=== PATIENT | female | born 1990 | race Caucasian/White ===

== ENCOUNTER 2017-04-08 04:05 | Inpatient (IN) | payer OTHER ==
[2017-04-08] MEDS ORDERED: PROPOFOL 10 MG/ML, 20ML ONE (06:00)
[2017-04-08] MEDS ORDERED: SUCCINYLCHOLINE 20 MG/ML, 10ML ONE (06:00)
[2017-04-08] MEDS ORDERED: KETOROLAC 30 MG/1 ML ONE (06:00)
[2017-04-08] MEDS ORDERED: EPHEDRINE 50 MG/ML, 1ML ONE (06:00)
[2017-04-08] MEDS ORDERED: METOCLOPRAMIDE 5 MG/ML, 2ML ONE (06:00)
[2017-04-08] MEDS: KETOROLAC 30 MG/1 ML IV SCH ×3 (06:30→19:30)
[2017-04-08 09:20] VITALS: BP 127/81
[2017-04-08] MEDS: LACTATED RINGERS 1,000 ML IV SCH ×4 (09:53→21:14)
[2017-04-08] MEDS: OXYTOCIN 30U/ 0.9% NaCL 500ML 500 ML IV SCH ×2 (09:53→19:53)
[2017-04-08] MEDS ORDERED: ONDANSETRON 2MG/ML, 2ML IV PRN (10:00)
[2017-04-08] MEDS ORDERED: morphine SULFATE 10 MG/ML, 1ML IVPush PRN ×2 (10:00)
[2017-04-08] MEDS ORDERED: MEPERIDINE/PF 25MG/0.5ML IM PRN (10:00)
[2017-04-08] MEDS ORDERED: MEPERIDINE/PF 50 MG/ML IVPush PRN (10:00)
[2017-04-08] MEDS ORDERED: MISOPROSTOL 200 MCG TABLET PO PRN (10:00)
[2017-04-08] MEDS ORDERED: OXYcodone IR 5MG TABLET PO PRN ×2 (10:00)
[2017-04-08] MEDS ORDERED: SIMETHICONE 80 MG CHEW TAB PO PRN (10:00)
[2017-04-08] MEDS ORDERED: MISOPROSTOL 200 MCG TABLET PR PRN ×2 (10:00)
[2017-04-08] MEDS ORDERED: MEPERIDINE/PF 50 MG/ML IM PRN (10:00)
[2017-04-08] MEDS ORDERED: MEPERIDINE/PF 100 MG/ML IVPush PRN (10:00)
[2017-04-08] MEDS ORDERED: CALCIUM CARBONATE 500 MG TAB.CHEW PO PRN (10:00)
[2017-04-08 10:15] LABS: HEMATOCRIT 33.7 % (34.6-47.8); HEMOGLOBIN 11.3 g/dL (11.7-16.4); WHITE BLOOD COUNT 16.4 x10^3/uL (3.4-10)
[2017-04-08] MEDS: OXYcodone/APAP 5/325MG TABLET PO PRN ×3 (10:56→19:30)
[2017-04-08] MEDS ORDERED: PLEASE ENTER HEIGHT AND WEIGHT MC SCH (11:00)
[2017-04-08 12:30] VITALS: BP 110/72
[2017-04-08 14:26] LABS: HEMATOCRIT 29.8 % (34.6-47.8); WHITE BLOOD COUNT 18.3 x10^3/uL (3.4-10)
[2017-04-08 16:00] VITALS: BP 113/75
[2017-04-08 17:14] LABS: HEMOGLOBIN 9.9 g/dL (11.7-16.4); WHITE BLOOD COUNT 16.4 x10^3/uL (3.4-10)
[2017-04-08] MEDS: DOCUSATE 100 MG CAPSULE PO PRN (19:30)
[2017-04-08 20:45] VITALS: BP 112/67
[2017-04-09] MEDS: OXYcodone/APAP 5/325MG TABLET PO PRN ×5 (00:03→20:55)
[2017-04-09 00:07] VITALS: BP 104/65
[2017-04-09] MEDS: KETOROLAC 30 MG/1 ML IV SCH ×2 (01:35→08:02)
[2017-04-09] MEDS: LACTATED RINGERS 1,000 ML IV SCH ×5 (01:53→17:53)
[2017-04-09] MEDS: OXYTOCIN 30U/ 0.9% NaCL 500ML 500 ML IV SCH ×2 (05:53→15:53)
[2017-04-09 05:55] VITALS: BP 103/65
[2017-04-09 08:00] VITALS: BP 104/65
[2017-04-09] MEDS: DOCUSATE 100 MG CAPSULE PO PRN ×2 (08:02→20:55)
[2017-04-09] MEDS ORDERED: IBUPROFEN 600 MG TABLET ONE (08:11)
[2017-04-09] MEDS: IBUPROFEN 600 MG TABLET PO PRN ×3 (08:12→20:55)
[2017-04-09 19:30] VITALS: BP 114/63
[2017-04-10] MEDS: OXYTOCIN 30U/ 0.9% NaCL 500ML 500 ML IV SCH ×2 (01:53→11:53)
[2017-04-10] MEDS: LACTATED RINGERS 1,000 ML IV SCH ×4 (01:53→11:53)
[2017-04-10] MEDS: IBUPROFEN 600 MG TABLET PO PRN ×2 (03:45→13:09)
[2017-04-10] MEDS: OXYcodone/APAP 5/325MG TABLET PO PRN ×3 (03:45→13:09)
[2017-04-10 07:40] VITALS: BP 119/75
[2017-04-10] MEDS: PRENATAL VIT/IRON/FA 1 EACH TABLET PO SCH ×2 (08:06→09:00)
[2017-04-10] MEDS: DOCUSATE 100 MG CAPSULE PO PRN (08:07)
[2017-04-10] MEDS ORDERED: IBUPROFEN 600 MG TABLET PO PRN (10:00)
[2017-04-10] MEDS ORDERED: DOCU-131 PO (11:06)
[2017-04-10] MEDS ORDERED: IBUP-1223 PO (11:07)
[2017-04-10] MEDS ORDERED: OXYC-302 PO (11:08)
[2017-04-10] MEDS ORDERED: DIPH,PERTUSS(ACELL),TET VAC/PF NC IM-VACC ONE ×2 (13:02→13:10)
== END 2017-04-10 13:55 | disposition home or self-care (01) | DRG 766 ==
LOC: LDIP 04:05 → 2NW 09:24
PROVIDERS: ADMIT Obstetrics & Gynecology; ATTEND Obstetrics & Gynecology
PROC: 10D00Z1 Extraction of Products of Conception, Low, Open Approach (ICD-10-PCS; principal; 2017-04-08)
PROC: 0DNS0ZZ (ICD-10-PCS; 2017-04-08)
DX: O34.211 Maternal care for low transverse scar from previous cesarean delivery (principal); F32.9 Major depressive disorder, single episode, unspecified; Z37.0 Single live birth; O99.344 Other mental disorders complicating childbirth; K66.0 Peritoneal adhesions (postprocedural) (postinfection); F17.200 Nicotine dependence, unspecified, uncomplicated; O99.334 Smoking (tobacco) complicating childbirth; Z3A.38 38 weeks gestation of pregnancy; Z90.49 Acquired absence of other specified parts of digestive tract; Z88.4 Allergy status to anesthetic agent; Z88.1 Allergy status to other antibiotic agents; Z91.040 Latex allergy status; Z88.5 Allergy status to narcotic agent; Z91.018 Allergy to other foods; Z81.8 Family history of other mental and behavioral disorders; Z83.3 Family history of diabetes mellitus
CPT/HCPCS: 36415; 85025; 86850; 86900; 88230; 88262; 88289; 89060; 90715; J1885; J2704; J0330; J2765; J7120; Q0114

== ENCOUNTER 2017-06-02 17:56 | Emergency (ER) | payer OTHER ==
[~2017-06-02] VITALS: Ht 154.9 cm; Wt 64.0 kg
[~2017-06-02 17:56] MED LIST: DOCU-131 PO; IBUP-1223 PO; OXYC-302 PO
[2017-06-02] MEDS ORDERED: SODIUM CHLORIDE FLUSH 10ML SYR IVF ONE (19:00)
[2017-06-02] MEDS ORDERED: SODIUM CHLORIDE 0.9% 1,000ML IVBOLUS ONE (19:00)
[2017-06-02] MEDS ORDERED: DIPHENHYDRAMINE 50 MG/ML, 1ML IVPush ONE (19:00)
[2017-06-02] MEDS ORDERED: METOCLOPRAMIDE 5 MG/ML, 2ML IVPush ONE (19:00)
[2017-06-02] MEDS ORDERED: KETOROLAC 30 MG/1 ML IVPush ONE (19:00)
[2017-06-02] MEDS ORDERED: KETOROLAC 30 MG/1 ML ONE (19:16)
[2017-06-02] MEDS ORDERED: METOCLOPRAMIDE 5 MG/ML, 2ML ONE (19:16)
[2017-06-02] MEDS ORDERED: DIPHENHYDRAMINE 50 MG/ML, 1ML ONE (19:16)
[2017-06-02 19:48] VITALS: BP 120/68
== END 2017-06-02 20:21 | disposition home or self-care (01) ==
LOC: ED 18:48
DX: G43.009 Migraine without aura, not intractable, without status migrainosus (principal); J02.8 Acute pharyngitis due to other specified organisms
CPT/HCPCS: 71020; 87081; 87880; 93005; 96361; 96374; 96375; 99285; J1200; J1885; J2765; J7030

== ENCOUNTER 2017-12-03 01:45 | Emergency (ER) | payer SELFPAY ==
[~2017-12-03] VITALS: Ht 154.9 cm; Wt 62.3 kg
[~2017-12-03 01:45] MED LIST changes: +PRENATAL; +TYLENOL
[2017-12-03] MEDS ORDERED: KETOROLAC 30 MG/1 ML ONE (02:15)
[2017-12-03] MEDS ORDERED: OXYcodone/APAP 5/325MG TABLET ONE (02:16)
[2017-12-03] MEDS ORDERED: OXYcodone/APAP 5/325MG TABLET PO ONE (02:30)
[2017-12-03] MEDS ORDERED: KETOROLAC 30 MG/1 ML IM ONE (02:30)
[2017-12-03 03:58] VITALS: BP 107/76
== END 2017-12-03 04:12 | disposition home or self-care (01) ==
LOC: ED 02:47
DX: O03.9 Complete or unspecified spontaneous abortion without complication (principal); Z3A.12 12 weeks gestation of pregnancy
CPT/HCPCS: 36415; 76801; 84702; 86901; 88305; 96372; 99285; J1885

== ENCOUNTER 2018-06-26 12:01 | Emergency (ER) | payer OTHER ==
[~2018-06-26] VITALS: Ht 154.9 cm; Wt 66.6 kg
[2018-06-26 12:02] VITALS: BP 126/77
[2018-06-26] MEDS ORDERED: IBUPROFEN 200 MG TABLET PO ONE (13:00)
[2018-06-26] MEDS ORDERED: IBUPROFEN 600 MG TABLET ONE (13:09)
== END 2018-06-26 13:53 | disposition home or self-care (01) ==
LOC: ED 13:30
DX: S63.511A Sprain of carpal joint of right wrist, initial encounter (principal); G43.909 Migraine, unspecified, not intractable, without status migrainosus; F17.200 Nicotine dependence, unspecified, uncomplicated; X58.XXXA Exposure to other specified factors, initial encounter; Y93.89 Activity, other specified; Y92.009 Unspecified place in unspecified non-institutional (private) residence as the place of occurrence of the external cause; Y99.8 Other external cause status
CPT/HCPCS: 29260; 99284

== ENCOUNTER 2018-10-03 10:30 | Emergency (ER) | payer OTHER ==
[~2018-10-03] VITALS: Ht 157.5 cm; Wt 69.3 kg
[2018-10-03 10:43] VITALS: BP 118/74
--- NOTE | 2018-10-03 11:26 | NUR ---
TO ROOM 27 WITH FAMILY
--- NOTE | 2018-10-03 11:27 | NUR ---
ORIENTED TO ROOM FOR SAFETY.
[2018-10-03] MEDS ORDERED: PROMETHAZINE/COD. 10MG/6.25MG/5 ML ORAL SOL PO ONE (12:30)
--- NOTE | 2018-10-03 12:36 | NUR ---
PT MEDICATED PER EMAR.
--- NOTE | 2018-10-03 13:33 | NUR ---
AWAITING FLU TEST AT THIS TIME.
[2018-10-03 13:40] LABS: RAPID INFLUENZA A Negative (Negative); RAPID INFLUENZA B Negative (Negative)
--- NOTE | 2018-10-03 13:46 | NUR ---
Patient/Caregiver given discharge instructions and they have confirmed that they understand the instructions. Patient ambulatory with steady gait.
== END 2018-10-03 14:11 | disposition home or self-care (01) ==
LOC: ED 12:25
DX: B34.9 Viral infection, unspecified (principal); R07.89 Other chest pain; F17.210 Nicotine dependence, cigarettes, uncomplicated; G43.909 Migraine, unspecified, not intractable, without status migrainosus; J45.909 Unspecified asthma, uncomplicated
CPT/HCPCS: 71046; 87400; 93005; 99284; 99406